=== PATIENT | male | born 1955 | race Caucasian/White ===

== ENCOUNTER 2023-10-19 09:10 | Outpatient (AMB) | payer MEDICARE, SELFPAY ==
--- NOTE | 2023-10-19 09:34 | A.SPINEOV_ITS ---
Intake Visit Reasons: Bulge disc/ Back pain Intake Note: Mr. Awad is here today c/o numbness in the feet and right knee pain. 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 Over the last year so he is developed numbness in his feet. Specifically feels like his whole foot is numb and he f eels as though he has socks that are bunched up on the bottom of his feet. It can be associated with activity but it can also be present if he is sitting in a chair too long. He was recently diagnosed with diabetes last year and had a rather abrupt onset of the symptoms and diagnosis. He tells me he went from having an A1c that was prediabetic to being almost 12 over the course of a few months. He lost almost 20 lb. His A1c is now back under control with glipizide and metformin. He underwent an MRI and this showed some mild disc degeneration in the setting of his previous surgery and came his day to see us to evaluate if there was anything that needs to be done surgically. Also reports having back pain mostly on the right side with a feeling of stiffness. He is very clear to me however that none of this affects his quality of life or his ability to do activities. He has not felt the need to seek out pain management or cortisone shots etc. or any specific medications for the back pain. PMH: Diabetic as outlined above, hypertension, AFib on Eliquis, back surgery at L4-5 in 2020. Social hx: He does not smoke, occasional alcohol, no recreational drug Medications: Metoprolol, glipizide, metformin, Eliquis, allopurinol, vitamin D3, Co Q10, Carolyn, multivitamin, valsartan, amlodipine, calcium, pravastatin, B12 Allergies: Doxycycline Physical exam: Patient is awake alert oriented no acute distress he has full strength of bilateral lower extremities, normal gait, normal reflexes Imaging review: He has a lumbar MRI done in [facility] which shows postsurgical changes at L4-5 with evidence of good decompression. There was some [id number] residual right L4 foraminal stenosis but otherwise no evidence of nerve compression. On the right side I can see there is Modic type 2 endplate changes. There is also osteophyte overgrowth at L1-2 and L2-3 but no nerve compression related to this. No spondylolisthesis or specific signs of structural abnormality with the alignment of the spine. Impression: 68-year-old male presents in the setting of previous L4-5 decompression, surgery was in 2020. Last year he developed numbness of his feet as outlined above. It is not necessarily associated with activity, he walks about 3 miles a day and does not notice it worse during the walk. It can get aggravated if he is sitting in a chair. I do not see any residual compression on his MRI to explain his symptoms. It would be unusual to be related to his surgery because he did not have the symptoms before surgery. It could be some kind of neuropathy. It seems a bit early in his diabetes diagnosis to have neuropathy considering his previous A1cs were all normal. It could be another kind of neuropathy altogether. That would require a nerve conduction study to diagnose and probably a neurology workup. From my standpoint he needs no surgery. He can continue with activities as tolerated. I think his back pain is likely a after effect of his disc degeneration but is not bad enough to limit his quality of life so obviously does not need an operation for it. I would be happy to see him back if something changes. Thank you for allowing us to care for your patient. The total time spent with this visit with this patient was 45 minutes reviewing history, physical exam, lumbar imaging review, and implementation of treatment plan or further diagnostic testing Pietro Flor MD,PhD [facility] Coding Level of Care Code New Pt Level 4 (94547) Diagnoses Numbness of feet R20.0
== END 2023-10-19 10:03 | disposition home or self-care (01) ==
PROVIDERS: PCP Physician Assistant Medical; Visit Provider Physician Assistant
DX: R20.0 Anesthesia of skin (principal)
CPT/HCPCS: 99204

== ENCOUNTER → 2023-10-19 09:10 | Outpatient (BNVA) | payer MEDICARE, SELFPAY | PROVIDERS: PCP Physician Assistant Medical; Visit Provider Physician Assistant | DX: R20.0 Anesthesia of skin (principal) | CPT/HCPCS: 99202 ==